=== PATIENT | male | born 1995 ===

== ENCOUNTER 2021-03-12 07:32 | Emergency (ER) | payer SELFPAY ==
[~2021-03-12] VITALS: Ht 170.2 cm; Wt 84.8 kg
[2021-03-12 09:02] VITALS: BP 118/76
[2021-03-12] MEDS ORDERED: cefTRIAXone SOD 1,000 MG VL IM ONE (09:15)
[2021-03-12] MEDS ORDERED: methylPREDNISolone SOD SUCC 125 MG/2 ML VL IM ONE (09:15)
== END 2021-03-12 09:58 | disposition home or self-care (01) ==
LOC: ER 07:32
DX: J03.90 Acute tonsillitis, unspecified (principal)
CPT/HCPCS: 96372; 99284; J0696; J2930